=== PATIENT | male | born 1965 | race Caucasian/White ===

== ENCOUNTER → 2018-01-03 06:55 | Outpatient (CLI) | payer OTHER, SELFPAY ==
--- NOTE | 2018-01-03 | DI.MRI.S_ITS ---
PROCEDURE: MR LUMBAR SPINE WO CON INDICATIONS: Lumbar radiculopathy TECHNIQUE: Noncontrast sagittal T1 spin echo and T2 fast echo, sagittal STIR, axial T1 and T2 fast spin echo through the lumbar spine. In cases with scoliosis, additional coronal T2 fast spin echo may be performed. COMPARISON: None. FINDINGS: Image quality: Excellent. Alignment and Curvature: Minimal grade 1 retrolisthesis of L5 on S1. Bone Marrow: Marrow is of normal overall signal. No acute vertebral body compression fractures. There is chronic shortening of the lower lumbar spine pedicles in keeping with congenital spinal stenosis Spinal Cord: Conus medullaris terminates at the L1 level. Visualized cord demonstrates normal signal and size. Paraspinous Soft Tissues: No paravertebral masses. L1-L2: Normal appearance. L2-L3: Normal appearance. L3-L4: Broad-based posterior disc bulge and bilateral facet arthropathy. Posterior annular fissure. Mild canal narrowing. Mild bilateral foraminal stenoses. L4-L5: Broad-based posterior disc bulge bilateral facet arthropathy. No definite canal stenosis or foraminal narrowing.. L5-S1: Posterior annular fissure in broad-based posterior disc bulge with superimposed left paracentral disc protrusion with associated subarticular narrowing image 6 series 6. This descending left S1 nerve root is not well seen, however may be posterolaterally displaced and the appearance is suspicious for impingement. Bilateral facet arthropathy. Mild central canal stenosis. No definite left foraminal narrowing. Mild right foraminal narrowing. IMPRESSION: Left L5-S1 paracentral disc protrusion, with suspected impingement of the descending left S1 nerve root. Please correlate clinically to exam findings. Congenital lower lumbar spinal stenosis. Minimal grade 1 retrolisthesis of L5 on S1. Dictated by: Teja Wilcox M.D. on 01/03/2018 at 10:03 Approved by: Teja Wilcox M.D. on 01/03/2018 at 10:14
== END ==
PROVIDERS: Visit Provider Family Medicine
DX: M51.17 Intervertebral disc disorders with radiculopathy, lumbosacral region (principal); M48.061 Spinal stenosis, lumbar region without neurogenic claudication; M43.16 Spondylolisthesis, lumbar region
CPT/HCPCS: 72148

== ENCOUNTER 2020-04-30 16:12 | Emergency (ER) | payer OTHER, SELFPAY ==
[2020-04-30 16:20] VITALS: BP 178/101; PULSE 92; RESP 18; TEMP 36.7; O2SAT 98
--- NOTE | 2020-04-30 16:24 | DI.CT.S_ITS ---
PROCEDURE: CT HEAD/BRAIN WO CON INDICATIONS: headaches, syncope, unresponsive TECHNIQUE: Noncontrast 4.5 mm thick angled axial sections acquired from the foramen magnum to the vertex, with coronal and sagittal reformats. For radiation dose reduction, the following was used: automated exposure control, adjustment of mA and/or kV according to patient size. COMPARISON: [facility], CT, HEAD WITHOUT CONTRAST, 07/30/2011, 15:44. FINDINGS: Image quality: Excellent. CSF spaces: Basal cisterns are patent. No extra-axial fluid collections. Ventricles are normal in size and shape. Brain: No midline shift. No intracranial masses or hemorrhage. Chu-white matter interface is normal. Skull and face: Calvarium and visualized facial bones are intact, without suspicious lesions. Sinuses: Moderate mucosal thickening is again seen within the ethmoid air cells. Milder mucosal thickening is seen within the maxillary sinuses. No abnormal fluid is seen within the mastoid air cells. IMPRESSION: Unremarkable intracranial study. Paranasal sinus disease, which is most prominent within the ethmoid air cells, as before. Dictated by: Sukhjinder Carrion M.D. on 04/30/2020 at 15:43 Approved by: Sukhjinder Carrion M.D. on 04/30/2020 at 15:45
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
[2020-04-30 17:02] LABS: Add Manual Diff / Slide Review NO; Basophils Absolute Auto 100 /uL (0-100); Eosinophils Absolute Auto 400 /uL (0-450); Eosinophils Percent Auto 5.1 % (2-4); Hematocrit 42.3 % (41-53); Lymphocytes Absolute Auto 2400 /uL (1100-4500); Lymphocytes Percent Auto 28.9 % (25-40); Mean Corpuscular HGB Conc 33.2 % (30-36); Mean Corpuscular Hemoglobin 28.6 PG (26-34); Mean Corpuscular Volume 86.3 fL (80-100); Monocytes Absolute Auto 700 /uL (0-900); Neutrophils Absolute Auto 4800 /uL (1500-7000); Platelet Count 230 X10^3/uL (150-400); Red Cell Distribution Width 13.3 % (11.6-14.8); White Blood Cell Count 8.4 X10^3/uL (4.5-11.0)
--- NOTE | 2020-04-30 17:05 | DI.CT.S_ITS ---
PROCEDURE: CT ANGIO HEAD AND NECK INDICATIONS: syncope, unresponsive, headaches TECHNIQUE: Pre-contrast 4.5 mm thick sections acquired from the foramen magnum to the vertex. After the administration of intravenous contrast, 1 mm thick sections acquired from the aortic arch through the [place] of [place]. Post-contrast 4.5 mm thick sections then re-acquired from the foramen magnum to the vertex. 3-dimensional prdvypp-cpdgtikua-yygrljnvjj (MIP) and/or volume rendering reformats were acquired of the central intracranial vasculature and neck separately. COMPARISON: [facility], CR, CERVICAL SPINE 2 OR 3 VIEWS, 12/13/2016, 18:01. [facility], CT, HEAD WITHOUT CONTRAST, 07/30/2011, 15:44. [facility], CT, CT HEAD/BRAIN WO CON, 04/30/2020, 16:28. FINDINGS: Image quality: Excellent. BRAIN: CSF spaces: Ventricles are normal in size and shape. Basal cisterns are patent. No extra-axial fluid collections. Brain: No midline shift. No intracranial bleeds or masses. Chu-white matter interface appears intact. Skull and face: Calvarium and facial bones appear intact, without suspicious lesions. Orbits appear normal. Sinuses: Paranasal sinus disease is again seen, which is worst within the ethmoid air cells. HEAD CT ANGIOGRAPHY: Anterior circulation: Intracranial internal carotid arteries are normal in size and flow. The flow within the paired anterior cerebral arteries is normal and symmetric. The flow within the middle cerebral arteries is normal and symmetric. The anterior communicating artery is seen. No aneurysms are seen. Posterior circulation: Visualized portions of the vertebral arteries demonstrate normal caliber, and join to form a normal appearing basilar artery. Flow within the posterior cerebral arteries is normal and symmetric. No aneurysms are seen. NECK CT ANGIOGRAPHY: Carotid system: The great vessels demonstrate a conventional anatomy as they arise from the aortic arch. The origins of the common carotid arteries appear patent. The common carotid arteries demonstrate normal caliber and courses. The bifurcation regions are both widely patent. The internal carotid arteries demonstrate normal calibers and courses. Posterior circulation: The origins of the vertebral arteries both appear widely patent. The more superior extracranial portions of both vertebral arteries also demonstrate normal courses and calibers. They join to form a normal appearing basilar artery. Soft tissues: Visualized neck soft tissues demonstrate no suspicious abnormalities. Enlarged mediastinal lymph nodes are partially seen, including a right paratracheal lymph node measuring 16 x 13 mm. Bones: No suspicious bony lesions. Visualized cervical spine appears normally aligned. Focal degenerative changes seen at C5-C6, with moderate to severe disc space narrowing, with associated endplate irregularity and sclerosis. Milder degenerative changes are seen elsewhere. IMPRESSION: No significant intracranial arterial abnormality is seen. Within the arteries of the neck, no hemodynamically significant stenosis can be seen. Enlarged mediastinal lymph nodes partially seen. When clinically appropriate, please consider a dedicated follow-up chest CT with contrast for further evaluation. Focal C5-C6 degenerative change noted. Any quantitative measurements of stenosis were performed using NASCET criteria. Dictated by: Sukhjinder Carrion M.D. on 04/30/2020 at 16:56 Approved by: Sukhjinder Carrion M.D. on 04/30/2020 at 16:59
[2020-04-30 17:11] LABS: INR 1.1 (0.9-1.3); Prothrombin Time 12.5 SECONDS (10.1-12.7)
[2020-04-30 17:14] VITALS: PULSE 68; O2SAT 98
[2020-04-30 17:16] LABS: Alanine Aminotransferase 16 IU/L (<50); Albumin 4.1 g/dL (3.5-5.0); Albumin Globulin Ratio 1.2 (1.0-2.8); Alkaline Phosphatase 66 U/L (38-126); Aspartate Aminotransferase 21 IU/L (17-59); BUN Creatinine Ratio 21.6 (6-22); Bilirubin Total 0.5 mg/dL (0.2-1.3); Blood Urea Nitrogen 21 mg/dL (9-20); Calcium 9.2 mg/dL (8.4-10.2); Carbon Dioxide 30 mmol/L (22-32); Chloride 104 mmol/L (98-107); Estimated Glomerular Filt Rate > 60.0 mL/min (>60); Globulin 3.3 g/dL (1.7-4.1); Glucose 100 mg/dL (70-100); HEMOLYSIS < 15 (0-50); Potassium 3.6 mmol/L (3.4-5.1); Sodium 142 mmol/L (137-145); Total Protein 7.4 g/dL (6.3-8.2)
[2020-04-30 17:33] VITALS: PULSE 68; O2SAT 99
[2020-04-30 17:40] VITALS: PULSE 68; O2SAT 98
[2020-04-30] MEDS: SODIUM CHLORIDE 0.9% 500 ML 1000 ML IV (17:50)
[2020-04-30 17:55] VITALS: BP 140/87; PULSE 67; O2SAT 98
[2020-04-30 18:35] VITALS: BP 142/86; PULSE 65; RESP 18; O2SAT 99
== END 2020-04-30 18:38 | disposition home or self-care (01) ==
PROVIDERS: Emergency Provider Emergency Medicine; PCP Family Medicine; Referring Provider Family Medicine
DX: R51.9 Headache, unspecified (principal); R40.4 Transient alteration of awareness; R55 Syncope and collapse; I10 Essential (primary) hypertension; G47.30 Sleep apnea, unspecified
CPT/HCPCS: 36415; 70450; 70496; 70498; 80053; 82962; 85025; 85610; 93005; 93010; 96360; 99284; Q9967

== ENCOUNTER → 2020-10-02 17:07 | Outpatient (CLI) | payer OTHER, SELFPAY ==
[2020-10-02] MEDS: COVID-19 VACC #1, MRNA(MOD) 100 MCG/0.5 ML VIAL IM (17:15)
== END ==
PROVIDERS: PCP Family Medicine; Visit Provider Internal Medicine
DX: Z23 Encounter for immunization (principal)
CPT/HCPCS: 0011A; 91301

== ENCOUNTER → 2020-11-12 14:38 | Outpatient (CLI) | payer OTHER, SELFPAY ==
[2020-11-12] MEDS: COVID-19 VACC #2, MRNA(MOD) 100 MCG/0.5 ML VIAL IM (14:45)
== END ==
PROVIDERS: PCP Family Medicine; Visit Provider Internal Medicine
DX: Z23 Encounter for immunization (principal)
CPT/HCPCS: 0012A; 91301

== ENCOUNTER → 2020-11-19 12:11 | Outpatient (CLI) | payer OTHER, SELFPAY ==
--- NOTE | 2020-11-19 12:13 | DI.US.S_ITS ---
PROCEDURE: US SCROTUM INDICATIONS: RIGHT TESTICULAR PAIN TECHNIQUE: Real-time scanning was performed of the scrotum and testicles, with image documentation. Color and pulse Doppler interrogation was performed of both testicles. COMPARISON: None. FINDINGS: Right: Testicle is normal in size at 4.6 x 2.1 x 2.6 cm, and homogenous in echotexture. Epididymis is normal in overall size and morphology. There is a small right-sided hydrocele. Overlying scrotal skin is normal in thickness. Left: Testicle is normal in size at 3.6 x 1.9 x 2.3 cm, and homogeneous in echotexture. Epididymis is normal in overall size and demonstrates a 7 x 7 x 12 mm septated epididymal cyst. There is a moderate left-sided hydrocele, which appears septated and may be related to a spermatocele. Overlying scrotal skin is normal in thickness. Doppler: Color and pulse Doppler demonstrate normal and symmetric arterial flow in both testicles. No varicocele can be seen on either side. No significant groin abnormality can be seen. IMPRESSION: No significant abnormality is seen. No groin abnormality can be seen. There is a small right-sided and moderate left-sided hydrocele. On the left, there is a septation seen, which may be related to a spermatocele. 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 Dictated by: Sukhjinder Carrion M.D. on 11/21/2020 at 8:50 Approved by: Sukhjinder Carrion M.D. on 11/21/2020 at 8:52
== END ==
PROVIDERS: PCP Family Medicine; Referring Provider Nurse Practitioner Family; Visit Provider Nurse Practitioner Family
DX: N50.811 Right testicular pain (principal); N43.3 Hydrocele, unspecified; E27.8 Other specified disorders of adrenal gland
CPT/HCPCS: 76870

== ENCOUNTER → 2022-08-30 13:46 | Outpatient (CLI) | payer OTHER, SELFPAY ==
--- NOTE | 2022-08-30 13:48 | DI.RAD.S_ITS ---
PROCEDURE: XR ELBOW RT MIN 3V INDICATIONS: Right elbow/Distal ulna pain after skiing TECHNIQUE: 3 views of the elbow were acquired. COMPARISON: None. FINDINGS: Bones: No fractures or dislocations. No suspicious bony lesions. Soft tissues: No elbow joint effusion. No suspicious soft tissue calcifications. IMPRESSION: No evidence acute bony abnormality of the right elbow. If clinical suspicion and/or symptoms persist, further assessment with repeat plain films, or advanced imaging (e.g., CT, MRI, or bone scan) may be helpful for further assessment. Dictated by: Iván Pedraza M.D. on 08/30/2022 at 15:20 Approved by: Iván Pedraza M.D. on 08/30/2022 at 15:20
--- NOTE | 2022-08-30 13:48 | DI.RAD.S_ITS ---
PROCEDURE: XR WRIST RT MIN 3V INDICATIONS: Right elbow/Distal ulna pain after skiing TECHNIQUE: 4 views of the wrist were acquired. COMPARISON: None. FINDINGS: Bones: No fractures or dislocations. No suspicious bony lesions. Scaphoid view: Scaphoid intact Soft tissues: No suspicious soft tissue calcifications. IMPRESSION: No evidence acute bony abnormality of the right wrist. If clinical suspicion and/or symptoms persist, further assessment with repeat plain films, or advanced imaging (e.g., CT, MRI, or bone scan) may be helpful for further assessment. Dictated by: Iván Pedraza M.D. on 08/30/2022 at 15:21 Approved by: Iván Pedraza M.D. on 08/30/2022 at 15:21
== END ==
PROVIDERS: PCP Family Medicine; Referring Provider Student in an Organized Health Care Education/Training Program; Visit Provider Student in an Organized Health Care Education/Training Program
DX: M25.521 Pain in right elbow (principal); M25.531 Pain in right wrist
CPT/HCPCS: 73080; 73110

== ENCOUNTER → 2025-01-17 15:17 | Outpatient (CLI) | payer BC, SELFPAY ==
--- NOTE | 2025-01-17 15:19 | DI.RAD.S_ITS ---
PROCEDURE: XR KNEE RT 3V INDICATIONS: anterior/lateral knee pain 3 wks TECHNIQUE: 3 views of the knee were acquired. COMPARISON: None. FINDINGS: Bones: No fractures or dislocations. No suspicious bony lesions. Soft tissues: No joint effusion. No suspicious soft tissue calcifications. IMPRESSION: No acute osseous abnormality. If pain persists with conservative management, consider repeat x-ray in 10-14 days or cross-sectional imaging. Dictated by: Bud Espinal M.D. on 01/17/2025 at 16:32 Approved by: Bud Espinal M.D. on 01/17/2025 at 16:33
== END ==
PROVIDERS: PCP Family Medicine; Referring Provider Family Medicine; Visit Provider Student in an Organized Health Care Education/Training Program
DX: S83.91XA Sprain of unspecified site of right knee, initial encounter (principal); M25.561 Pain in right knee; X58.XXXA Exposure to other specified factors, initial encounter
CPT/HCPCS: 73562

== ENCOUNTER → 2025-05-15 12:20 | Outpatient (CLI) | payer BC, SELFPAY ==
--- NOTE | 2025-05-15 12:22 | DI.RAD.S_ITS ---
PROCEDURE: XR FINGER RT MIN 2V
== END ==
PROVIDERS: PCP Family Medicine; Referring Provider Nurse Practitioner Family; Visit Provider Nurse Practitioner Family
DX: S69.91XA Unspecified injury of right wrist, hand and finger(s), initial encounter (principal); X58.XXXA Exposure to other specified factors, initial encounter
CPT/HCPCS: 73140